=== PATIENT | female | born 1985 ===

== ENCOUNTER 2018-04-22 00:32 | Inpatient (IN) | payer BC ==
[2018-04-22 01:46] VITALS: BMI 28.4
[2018-04-22] MEDS ORDERED: cefOXitin 2 GM in Sodium Chloride 0.9% 100 ML IVPB ONE (01:46)
[2018-04-22] MEDS ORDERED: Bicitra 30 ML UD PO ONE (01:46)
--- NOTE | 2018-04-22 02:37 | OBHP ---
Datetime: 04/22/2018 02:27 IP Adm Impression: Term, intrauterine IP Adm Impression Other: Breech Presentation IP Admit Plan: Admit to unit; Initiate Section protocol Admit Comment, IP Provider: 32yo @ 39w presents here today for admission for a scheuled cesarea n section due to persistent breech presentation. She denies any current complaints but feels good fet stefanie movements. PMHx: None of significance. OBHx: PSHx; None SocialHx: No toxic habits O: Afebrile Heart: RRR Chest: CTA B/L Abd: Soft, NT, BS - present FHR- Category 1 TOCO; Occasional uterine activity Bedside Sono: Breech Confirmed Assessment: Intrauterine at Term Breech Presentation, NST _ Reactive. Plan: Admit to the labor and Delivery call center consultant to the OR for Delivery Pelvic Type - PN: Adequate Extremities - PN: Normal Abdomen - PN: Normal Back - PN: Normal Breast - PN: Normal Lungs - PN: Normal Heart - PN: Normal Thyroid - PN: Normal Neurologic - PN: Normal HEENT - PN: Normal General - PN: Normal Presentation-Admit: Breech FHR - Baseline A Provider: 130 Membranes, Provider: Intact Gestation - Est Wks by US: 39.0 IP Chief Complaint: Scheduled Section NICHD Variability Prov Fetus A: Moderate 6-25bpm NICHD Accel Fetus A IP Provider: [id number] FHR Category Provider Fetus A: Category I NICHD Decel Fetus A IP Provider: None Dilatation, Provider: 0 Genitourinary Exam: Normal DTRs - PN: Normal
[2018-04-22 03:15] LABS: BASO % 0.4 % (0.0-2.0); EOS # 0.1 K/uL (0.0-0.7); HEMOGLOBIN 12.1 g/dL (12.0-16.0); LYMPH # 2.6 K/uL (1.0-4.3); LYMPH % 24.1 % (20.0-40.0); MEAN CELL VOLUME 86.3 fl (81.0-99.0); MEAN CORPUSCULAR HEMOGLOBIN 28.8 pg (27.0-31.0); MEAN CORPUSCULAR HGB CONC 33.4 g/dL (33.0-37.0); MEAN PLATELET VOLUME 7.3 fl (7.2-11.7); MONO # 0.7 K/uL (0.0-0.8); MONO % 6.9 % (0.0-10.0); NEUT # 7.3 K/uL (1.8-7.0); NEUT % 67.6 % (50.0-75.0); RBC 4.18 Mil/uL (3.80-5.20); RED CELL DISTRIBUTION WIDTH 14.6 % (11.5-14.5); WHITE BLOOD COUNT 10.7 K/uL (4.8-10.8)
[2018-04-22] MEDS: Lactated Ringer's 1,000 ML IV ONE ×2 (05:20→06:20)
[2018-04-22] MEDS ORDERED: Morphine 5 mg/10 ml preservative-free Inj(Duramorph) ONE (06:00)
[2018-04-22] MEDS ORDERED: Oxytocin 30 UNIT 30 UNITS/500 ML BAG IV ONE (06:30)
[2018-04-22] MEDS ORDERED: OXYTOCIN/0.9 % NS 20 UNIT/1,000 ML BAG IV SCH ×2 (07:00→10:24)
[2018-04-22] MEDS ORDERED: Oxycodone/Acetaminophen 5/325 mg Tab PO PRN ×4 (07:04→10:24)
--- NOTE | 2018-04-22 07:08 | OBADHP ---
Datetime: 04/22/2018 02:27 IP Hx Assessment: The History has been Reviewed and is Current
--- NOTE | 2018-04-22 07:10 | OBDS ---
DELIVERY PERSONNEL Delivery Doctor: Monique Mckeon DO Continuous Improvement Specialist: Ashlie Quigley RN Anesthesiologist: Chris ABARCA MATERNAL INFORMATION Delivery Anesthesia: Spinal Maternal Complications: None Provider Comments: Pre Op Dx : IUP 39w/breech presentation Post Op Dx same Procedure: Primary LTCS via Pfannenstiel incision Surgeon Dr Linda Parks Anesth: Dr Preet Abarca Anesth:spinal Findings: -Live female infant delivered from breech presentation -Clear AF -[id number] -Placenta delivered intact manually -Ovaries and tubes WNL grossly -all equipment sponges and needles accounted for -she remained stable EBL 800cc LABOR SUMMARY EDC: 04/29/2018 00:00 No. Babies in Womb: 1 Attempted: No Labor Anesthesia: None LABOR INFORMATION Group B Beta Strep: Done, Result Unknown Steroids Given: None Reason Steroids Not Administered: Not Applicable MEMBRANES Membranes Rupture Method: Artificial Rupture of Membranes: 04/22/2018 06:32 Length of Rupture (hrs): 0.02 Amniotic Fluid Color: Clear STAGES OF LABOR Stage 3 hrs: 0 Stage 3 min: 1 CSECTION DELIVERY Uterine Closure: Double-layer closure BABY A INFORMATION Infant Delivery Date/Time: 04/22/2018 06:33 Method of Delivery: Born in Route : No : N/A Forceps: N/A Vacuum Extraction: N/A Shoulder Dystocia : No SHOULDER DYSTOCIA BABY A Delivery Date/Time: 04/22/2018 06:33 PRESENTATION/POSITION BABY A Presentation: Breech PLACENTA INFORMATION BABY A Placenta Delivery Time : 04/22/2018 06:34 Placenta Method of Delivery: Spontaneous Placenta Status: Delivered SCORES BABY A Heart Rate 1 min: >100 bpm Resp Effort 1 min: Good Cry Reflex Irritability 1 min: Cough or Sneeze or Pulls Away Muscle Tone 1 min: Active Motion Color 1 min: Body Le[place], Extremities Blue Resuscitation Effort 1 min: Tactile Stimulation SCORE 1 MIN: 9 Heart Rate 5 min: >100 bpm Resp Effort 5 min: Good Cry Reflex Irritability 5 min: Cough or Sneeze or Pulls Away Muscle Tone 5 min: Active Motion Color 5 min: Body Le[place], Extremities Blue Resuscitation Effort 5 min: N/A SCORE 5 MIN: 9 INFANT INFORMATION BABY A Gestational Age at Delivery: 39.0 Outcome : Liveborn Condition : Stable Infant Sex: Female IDENTIFICATION/MEDS BABY A ID Band Number: [id number] ID Band Location: Left Leg; Left Arm WEIGHT/LENGTH BABY A Birthweight (gms): 3210 Weight (lb): 7 Weight (oz): 1 CORD INFORMATION BABY A No. Cord Vessels: 3 Cord Blood Taken: Yes Infant Suction: Mouth; Nose
[2018-04-22] MEDS ORDERED: DiphenhydrAMINE 50 mg/ml Inj IVP PRN ×2 (07:33→10:24)
[2018-04-22] MEDS ORDERED: Multivitamin With Minerals Tab PO SCH (09:00)
[2018-04-22] MEDS ORDERED: Simethicone 80 mg Chewtab PO SCH (10:00)
[2018-04-22] MEDS: Simethicone 80 mg Chewtab PO SCH ×2 (16:26→22:50)
[2018-04-22] MEDS: Oxycodone/Acetaminophen 5/325 mg Tab PO PRN (19:55)
[2018-04-23] MEDS: Oxycodone/Acetaminophen 5/325 mg Tab PO PRN ×3 (04:00→21:41)
[2018-04-23] MEDS: Simethicone 80 mg Chewtab PO SCH ×4 (04:00→21:40)
[2018-04-23 06:26] LABS: HEMOGLOBIN 10.9 g/dL (12.0-16.0); MEAN CELL VOLUME 87.5 fl (81.0-99.0); MEAN CORPUSCULAR HEMOGLOBIN 28.7 pg (27.0-31.0); MEAN CORPUSCULAR HGB CONC 32.8 g/dL (33.0-37.0); RBC 3.78 Mil/uL (3.80-5.20); RED CELL DISTRIBUTION WIDTH 14.9 % (11.5-14.5); WHITE BLOOD COUNT 12.2 K/uL (4.8-10.8)
[2018-04-23] MEDS ORDERED: Bisacodyl 5mg EC Tab PO PRN ×2 (07:04)
--- NOTE | 2018-04-23 07:04 | OP ---
PROCEDURE DATE: 04/22/2018 PREOPERATIVE DIAGNOSIS: Intrauterine at 39 weeks' gestation BREECH presentation. POSTOPERATIVE DIAGNOSIS: Intrauterine at 39 weeks' gestation BREECH presentation. PROCEDURE: Primary low transverse section via Pfannenstiel incision. SURGEON: Akira Mckeon DO. INTERNATIONAL MARKETING COORDINATOR: Henry Parks MD. (Dr. Henry Parks is a board certified VENDING MECHANIC physician, who was available to assist on this case and his presence was vital and necessary for this procedure. He was present from the time of skin incision to delivery of the to the closure of the skin. No director medical surgical was available today). ANESTHESIOLOGIST: Dr. Abarca. ANESTHESIA: Spinal. OPERATIVE FINDINGS: A live female infant, delivered from breech presentation. Clear amniotic fluid noted. score of 9 and 9 given at 1 and 5 minutes respectively. Placenta was delivered intact manually. Ovaries and tubes appeared to be within normal limits grossly. All equipment, sponges, and needles accounted. She remained hemodynamically stable throughout the procedure. ESTIMATED BLOOD LOSS: 800 mL. DESCRIPTION OF PROCEDURE: The patient was brought to the operating room when she was given spinal anesthesia by Dr. Abarca. She was placed in a supine position. Compression boots were placed on both lower extremities. Catheter was placed in the urethra and into the bladder and then noted to be draining clear urine and left in place. She was then draped and prepped in the usual sterile manner. Once adequate anesthesia was obtained, a Pfannenstiel incision was made using a scalpel. This incision was then taken down to underlying fascia using electrocautery. The fascia was nicked in the midline and extended bilaterally using electrocautery. The inferior aspect of the fascia was grasped using two Rubi clamps, tented up, and the rectus muscle was both bluntly and sharply dissected. The same was done with the superior aspect of the fascia. In the midline superiorly, the rectus muscle was bluntly. Peritoneum was entered bluntly. The incision was then extended superiorly and inferiorly with direct visualization of the bladder and intestines. Bladder blade was then inserted. Two wet lap pads were placed down in the paracolic gutters to mobilize the omentum in the intestine superiorly. Lower uterine segment was inspected and using Metzenbaum scissors, an incision was made on the peritoneum on the uterus and extended bilaterally creating a bladder flap. Bladder flap was created digitally. Bladder blade was then inserted behind the bladder flap. A low-transverse incision was made using a scalpel. Upon entering the uterus, incision was then extended bilaterally using bandage scissors. Rupture of membranes was performed using forceps WITH TEETH . Clear amniotic fluid was noted. First the 's buttocks were identified and then delivered. Remainder of the was then delivered as atraumatically as possible. The 's cord was clamped and cut. Infant was handed to the .net architect in attendance. Placenta was then delivered intact manually. Uterus was then exteriorized. Good contracture of the uterus was noted. Ureter was cleared with debris and clots. Ovaries and tubes appeared to be within normal limits grossly. An 0 Vicryl suture was used to close the first layer of the uterus in interlocking fashion. Second layer of the uterus was closed using 0 Vicryl suture imbricating the first layer. Good hemostasis was assured. Posterior cul-de-sac was noted to be clear of debris and clots. The uterus was placed back into the peritoneal cavity. All equipment, sponge, and lap pads were accounted for. Incision line was reinspected and noted to have good hemostasis. A #0 Vicryl suture was used to approximate the peritoneum in running fashion. Rectus muscle was noted to have good hemostasis and was approximated in the midline x2 using 0 Vicryl suture. A 0 Vicryl suture was used to approximate the fascia in a running fashion. Irrigation was performed. Hemostasis assured in the subcuticular layer using electrocautery. A 2-0 plain suture was used to approximate the subcuticular layer x3. A 3-0 Vicryl suture was used to approximate the skin. Dermabond, Steri-Strips, and pressure bandage were applied. She tolerated the procedure well and was transferred to the recovery room in stable condition. All equipment, sponges, and needles were accounted for. She remained stable throughout the procedure. Akira Mckeon DO [facility]ITALGris
--- NOTE | 2018-04-23 10:07 | OBPPN ---
Datetime: 04/23/2018 10:04 PP Pain Prov: Within normal limits PP Nausea Prov: Denies PP Flatus Prov: Yes PP BM Prov: No PP Breasts Prov: Normal PP Heart Prov: Normal PP Lungs Prov: Normal PP Abdomen/Uterus Prov: Normal PP Lochia Prov: Normal PP Vulva/Perineum Prov: Normal PP CVA Tenderness Prov: Normal PP Extremities Prov: Normal PP C/S Incision Prov: Normal PP Progress Prov: Normal PP Impression Prov: Normal progression PP Plan Prov: Continue present management PP Progress Note Prov: She feels fine after eating bfast. A: S/P c-seciotn day 1 PLAN: continue post op care Vital Signs Provider PP: Reviewed; Within Normal Limits
[2018-04-23] MEDS: Multivitamin With Minerals Tab PO SCH (10:24)
--- NOTE | 2018-04-23 11:37 | OBADHP ---
Datetime: 04/22/2018 02:27 IP Adm Impression Other: Breech Presentation Admit Comment, IP Provider: 32yo @ 39w presents here today for admission for a scheuled cesarea n section due to persistent breech presentation. She denies any current complaints but feels good fet stefanie movements. PMHx: None of significance. OBHx: PSHx; None SocialHx: No toxic habits O: Afebrile Heart: RRR Chest: CTA B/L Abd: Soft, NT, BS - present FHR- Category 1 TOCO; Occasional uterine activity Bedside Sono: Breech Confirmed Assessment: Intrauterine at Term Breech Presentation, NST _ Reactive. Plan: Admit to the labor and Delivery manager call to the OR for Delivery Pelvic Type - PN: Adequate Extremities - PN: Normal Abdomen - PN: Normal Back - PN: Normal Breast - PN: Normal Lungs - PN: Normal Heart - PN: Normal Thyroid - PN: Normal Neurologic - PN: Normal HEENT - PN: Normal General - PN: Normal Presentation-Admit: Breech FHR - Baseline A Provider: 130 Membranes, Provider: Intact Gestation - Est Wks by US: 39.0 IP Chief Complaint: Scheduled Section NICHD Variability Prov Fetus A: Moderate 6-25bpm NICHD Accel Fetus A IP Provider: [id number] FHR Category Provider Fetus A: Category I NICHD Decel Fetus A IP Provider: None Dilatation, Provider: 0 Genitourinary Exam: Normal DTRs - PN: Normal IP Adm Impression: Term, intrauterine IP Admit Plan: Admit to unit; Initiate Section protocol
[2018-04-24] MEDS: Simethicone 80 mg Chewtab PO SCH ×5 (04:18→21:57)
[2018-04-24] MEDS: Multivitamin With Minerals Tab PO SCH (08:27)
[2018-04-24] MEDS: Oxycodone/Acetaminophen 5/325 mg Tab PO PRN ×3 (08:28→21:58)
--- NOTE | 2018-04-24 12:15 | OBPPN ---
Datetime: 04/24/2018 12:13 PP Pain Prov: Within normal limits PP Nausea Prov: Denies PP Flatus Prov: Yes PP Breasts Prov: Not Done PP Heart Prov: Normal PP Lungs Prov: Normal PP Abdomen/Uterus Prov: Normal PP Lochia Prov: Not Done PP Vulva/Perineum Prov: Not Done PP CVA Tenderness Prov: Normal PP Extremities Prov: Normal PP C/S Incision Prov: Normal PP Impression Prov: Normal progression PP Plan Prov: Continue present management PP Progress Note Prov: Patient doing well ambulating tolerating diet pain well-controlled reports mi nimal lochia Vital signs stable afebrile Uterus firm below the umbilicus Incision clean dry intact Postoperative day #1 Ambulate, regular diet, analgesia Vital Signs Provider PP: Reviewed
[2018-04-25] MEDS: Simethicone 80 mg Chewtab PO SCH ×2 (05:05→09:00)
[2018-04-25] MEDS: Multivitamin With Minerals Tab PO SCH (08:08)
--- NOTE | 2018-04-25 11:31 | OBPPN ---
Datetime: 04/25/2018 11:29 PP Pain Prov: Within normal limits PP Nausea Prov: Denies PP Flatus Prov: Yes PP BM Prov: Yes PP Breasts Prov: Normal PP Heart Prov: Normal PP Lungs Prov: Normal PP Abdomen/Uterus Prov: Normal PP Lochia Prov: Normal PP Vulva/Perineum Prov: Normal PP CVA Tenderness Prov: Normal PP Extremities Prov: Normal PP C/S Incision Prov: Normal PP Progress Prov: Normal PP Comments Phys Exam Prov: Abdomen soft, nontender, nondistended Uterus firm, below umbilicus Incision clean, dry, intact No deep calf tenderness bilaterally PP Impression Prov: Normal progression PP Plan Prov: Discharge PP Progress Note Prov: Postoperative day #3 status post , patient recovering well. Discharge patient home with and post operative instructions and precautions Follow-up in office in 1 week for incision check Discussed plan with patient all patient questions answered. IP PP Procedures: None Vital Signs Provider PP: Reviewed; Within Normal Limits
--- NOTE | 2018-04-25 11:31 | OBDCSUM ---
Datetime: 04/25/2018 11:30 Discharged to, Provider: Home Follow up at, Provider: Linda Iverson Instr Activity: Normal activity Disch Instr Diet: Regular Discharge Instructions, Provider: Routine instructions given Discharge Diagnosis, Provider: Term Delivered Discharge Time: 04/25/2018 11:30 Follow up in weeks, Provider: 1 week Disch Referrals: None Contraception discussed, Prov: Yes Disch Activity Restrictions: No sexual activity; Nothing in vagina - [place], tampons, douche Contraception after Delivery: Undecided
[2018-04-25 20:05] VITALS: BP 122/69; PULSE 74; RESP 20; TEMP 98.1; O2SAT 98
== END 2018-04-25 14:40 | disposition home or self-care (01) | DRG 788 ==
LOC: H.EROB2 00:32 → H.L&D 02:23 → H.OB/GYN 10:06
PROVIDERS: ADMIT Obstetrics & Gynecology; ATTEND Obstetrics & Gynecology
PROC: 10D00Z1 Extraction of Products of Conception, Low, Open Approach (ICD-10-PCS; principal; 2018-04-22)
PROC: 4A1HXCZ Monitoring of Products of Conception, Cardiac Rate, External Approach (ICD-10-PCS; 2018-04-22)
DX: O32.1XX0 Maternal care for breech presentation, not applicable or unspecified (principal); Z3A.39 39 weeks gestation of pregnancy; Z37.0 Single live birth